=== PATIENT | female | born 1970 | race African-American/Black ===

== ENCOUNTER 2023-04-08 15:18 | Outpatient (CLI) | payer BC, SELFPAY ==
--- NOTE | ~2023-04-08 | MR_ITS ---
EXAMINATION: MR brain/brain stem wo con DATE: 04/08/2023 16:08 INDICATION: Migraine headache. TECHNIQUE: Magnetic resonance imaging (MRI) of the brain and brainstem was performed without intraven ous contrast. COMPARISON: None. FINDINGS: There is no intracranial hemorrhage, acute infarction, or abnormal intracranial mass lesion . The ventricles are normal in size. The orbits are normal. There is minimal mucosal thickening in et hmoid sinus. The mastoid air cells are normal. IMPRESSION: 1. Normal brain. Reviewed, dictated and finalized at location E. STATION MANAGER IMPRESSION: 1. Normal brain.
== END 2023-04-08 15:19 ==
LOC: GOSHIMG 15:21
PROVIDERS: PCP Family Medicine; Visit Provider Family Medicine
DX: R51.9 Headache, unspecified (principal)
CPT/HCPCS: 70551